=== PATIENT | male | born 1990 | race Caucasian/White ===

== ENCOUNTER 2024-07-29 23:27 | Emergency (ER) | payer SELFPAY ==
[~2024-07-29] VITALS: Ht 188 cm; Wt 106.1 kg
[2024-07-30 00:53] VITALS: BP 163/77; TEMP 98; O2SAT 98
== END 2024-07-30 01:49 | disposition home or self-care (01) ==
LOC: ER 23:30
DX: T16.2XXA Foreign body in left ear, initial encounter (principal); W44.F9XA Other object of natural or organic material, entering into or through a natural orifice, initial encounter; Y93.89 Activity, other specified; Y92.89 Other specified places as the place of occurrence of the external cause; Y99.8 Other external cause status